=== PATIENT | male | born 1940 | race Caucasian/White ===

== ENCOUNTER → 2023-09-17 06:34 | Outpatient (REF) | payer MEDICARE, BC, SELFPAY ==
[2023-09-17 07:23] LABS: % Basophils 0.7 % (0-2); % Eosinophils 5.1 % (0-6); % Immature Granulocytes 0.7 % (0-0.5); % Lymphocytes 13.6 % (20.5-51.1); % Neutrophils 70.9 % (42.2-75.2); Absolute Eosinophils 0.3 10^3/uL (0-0.7); Absolute Lymphocytes 0.8 10^3/uL (1.2-3.4); Absolute Monocytes 0.5 10^3/uL (0.1-0.6); Hematocrit 42.9 % (39.0-52.0); Hemoglobin 14.6 g/dL (13.0-18.0); Mean Corpuscular Hgb 32.7 pg (27.0-31.0); Mean Corpuscular Volume 96.2 fL (80.0-94.0); Mean Platelet Volume 10.7 fL (7.4-10.4); Nucleated Red Blood Cells % 0 % (-); Platelet Count 154 10^3/uL (130-400); Red Blood Cell Count 4.46 10^6/uL (4.70-6.10); Red Cell Dist. Width 12.8 % (11.5-14.5); White Blood Cell Count 5.7 10^3/uL (4.8-10.8)
[2023-09-17 07:39] LABS: ALT (SGPT) 23 U/L (0-50); AST (SGOT) 30 U/L (17-59); Alkaline Phosphatase 50 U/L (38-126); Blood Urea Nitrogen 27 mg/dl (9-20); Calcium 9.4 mg/dl (8.4-10.2); Carbon Dioxide 29 mmol/L (22-30); Chloride 103 mmol/L (98-107); Glucose 97 mg/dl (70-99); HDL Cholesterol 57 mg/dl; LDL Cholesterol, Calculated 53 mg/dl; Potassium 4.3 mmol/L (3.5-5.1); Sodium 139 mmol/L (135-145); Total Bilirubin 1.2 mg/dl (0.2-1.3); Total Cholesterol 128 mg/dl (50-199); Total Protein 6.3 g/dl (6.3-8.2); Triglyceride 93 mg/dl (10-149); Very Low Density Lipoprotein 18 mg/dl (0-30); eGFR > 60.00
[2023-09-17 07:56] LABS: Free T4 1.11 ng/dl (0.78-2.19)
== END ==
LOC: REG 06:34
PROVIDERS: ATTENDING PHYSICIAN Internal Medicine Cardiovascular Disease; FAMILY PHYSICIAN Family Medicine
DX: E78.2 Mixed hyperlipidemia (principal); E03.9 Hypothyroidism, unspecified; R53.83 Other fatigue
CPT/HCPCS: 36415; 80053; 80061; 84403; 84439; 84443; 85025

== ENCOUNTER → 2023-12-29 07:21 | Outpatient (REF) | payer MEDICARE, BC, SELFPAY ==
[2023-12-29 08:46] LABS: Free T4 1.13 ng/dl (0.78-2.19)
[2023-12-29 09:00] LABS: TSH 6.57 uIU/ml (0.47-4.68)
== END ==
LOC: REG 07:21
PROVIDERS: ATTENDING PHYSICIAN Family Medicine
DX: E03.9 Hypothyroidism, unspecified (principal)
CPT/HCPCS: 36415; 84439; 84443

== ENCOUNTER → 2024-04-17 08:52 | Outpatient (REF) | payer MEDICARE, BC, SELFPAY | LOC: HWRCS 08:52 | PROVIDERS: ATTENDING PHYSICIAN Internal Medicine Cardiovascular Disease; FAMILY PHYSICIAN Family Medicine | DX: R53.83 Other fatigue (principal); I10 Essential (primary) hypertension | CPT/HCPCS: 93306 ==

== ENCOUNTER 2024-10-19 22:04 | Emergency (ER) | payer MEDICARE, BC, SELFPAY ==
[2024-10-19 22:07] VITALS: BP 131/73
[2024-10-19 22:46] LABS: COVID-19 Antigen Positive (Negative)
[2024-10-19 23:00] LABS: ALT (SGPT) 22 U/L (0-50); AST (SGOT) 29 U/L (17-59); Albumin 4.3 g/dl (3.5-5.0); Alkaline Phosphatase 64 U/L (38-126); Blood Urea Nitrogen 24 mg/dl (9-20); Calcium 9.8 mg/dl (8.4-10.2); Carbon Dioxide 28 mmol/L (22-30); Chloride 102 mmol/L (98-107); Glucose 110 mg/dl (70-99); Potassium 4.7 mmol/L (3.5-5.1); Sodium 139 mmol/L (135-145); Total Bilirubin 0.8 mg/dl (0.2-1.3); Total Protein 6.7 g/dl (6.3-8.2); eGFR > 60.00
[2024-10-20 01:07] VITALS: BP 134/83
--- NOTE | 2024-10-20 01:07 | ED.GENMED ---
History of Present Illness
General
Chief Complaint: Nasal Problem
Source: patient and spouse
Time Seen by Provider: 10/20/24 00:35
History of Present Illness
History of Present Illness:
This patient is an 84-year-old male who says that he has not been feeling well for the last 2 to 3 weeks. He describes chest congestion and feeling like his sinuses are 'clogged up' associated with occasional cough. He has seen his doctor and had
a chest x-ray that was unremarkable. He was put on a course of antibiotics, and then this was changed to another different course of antibiotics for 10 days. Patient feels that he got better but not fully improved. He presented the emergency
department today because he noted congestion specifically on the right side. He denies chest pain, fever, chills, nausea, vomiting, anorexia, dizziness, swelling. Despite triage note, he denies shortness of breath. He denies orthopnea, PND, lower
extremity edema.
Past History
Past History
ED Past Medical History: CAD, HTN, Hypercholesterolemia, Hypothyroidism and Other
ED Past Surgical History: Cardiac (Stent X2) and Other (Hernia, recent cardiac stent placement, exploratory laparotomy, laminectomy surgery)
Social History
Tobacco: Non-smoker
Alcohol: None
Drug: None
Personal:
Living: with family
Employment: Retired
Family History
Family History: Diabetes and Other
Phy Exam
Physical Exam
Physical Exam:
GENERAL: Alert , in no apparent distress
EYE: pupils equal and reactive, EOMI, no photophobia
NECK: Supple, no significant adenopathy.
ENT: o/p clr, mmm, TMs clear bilaterally, no trismus, no drool, voice clear, no percussion tenderness of sinuses.
CARDIAC: Regular rate and rhythm .
LUNGS: Clear breath sounds bilaterally, no acute respiratory distress, no wheezes/rales/rhonchi
ABDOMEN: Soft, without focal tenderness, no r/g, no cvat
NEUROLOGICAL: Alert and oriented, no focal neuro deficits
SKIN: Warm and dry, skin intact.
MUSCULOSKELETAL: No edema, well perfused.
PSYCH: Normal and appropriate interaction.
Course
Orders/Labs/Results
Orders:
Orders
10/19/24 22:24
COVID-19 Antigen Urgent
Source: Nasal Swab
Comprehensive Metabolic Panel Urgent
Influenza A+B Rapid Molecular Urgent
ODIN Source: Nasal Swab
Specimen Description:
10/19/24 22:38
Complete Blood Count/With Diff Urgent
Abnormal Lab Results
10/19/24 10/20/24
22:24 01:26
RBC 4.46 L 10^6/uL
(4.70-6.10)
MCV 95.5 H fL
(80.0-94.0)
MCH 32.3 H pg
(27.0-31.0)
Absolute Lymphs (auto) 0.7 L 10^3/uL
(1.2-3.4)
Absolute Monos (auto) 0.9 H 10^3/uL
(0.1-0.6)
Neutrophils % 76.0 H %
(42.2-75.2)
Lymphocytes % 9.4 L %
(20.5-51.1)
Monocytes % 10.8 H %
(1.7-9.3)
BUN 24 H mg/dl
(9-20)
Glucose 110 H mg/dl
(70-99)
SARS-CoV-2 Antigen Positive A
(Negative)
10/20/24 01:26
10/19/24 22:24
Vital Signs
Initial and Last Documented VS:
Initial Vital Signs
Temp Pulse Resp BP Pulse Ox
98.8 F 77 18 131/73 98
10/19/24 22:07 10/19/24 22:07 10/19/24 22:07 10/19/24 22:07 10/19/24 22:07
Last Documented Vital Signs
Temp Pulse Resp BP Pulse Ox
98.8 F 74 20 134/83 100
10/19/24 22:07 10/20/24 02:10 10/20/24 02:10 10/20/24 02:10 10/20/24 02:10
*Critical Care Note
Total Time (30-74mins, 75-104mins- exclusive of procedures): Not Applicable
Update Note
Update Note:
Patient presents to the Emergency Department with
Number and Complexity of Problems Addressed at the Encounter
� Chronic conditions affecting care:
� Acute Exacerbation and/or Progression of Chronic Illness:
� Differential Diagnosis includes:
Amount and/or Complexity of Data to be Reviewed and Analyzed
� I performed an independent evaluation of and my interpretation is:
EKG:
CT:
Xrays:
Laboratory Studies: Generally unremarkable, COVID-positive, mild BUN elevation which may suggest mild prerenal azotemia
Other:
� Review of other/old records reveals:
� Clinical information was obtained by an independent historian:
� Prescriptions/Medications Considered but not given:
� Further testing considered but not performed: Consider chest x-ray with symptoms however physical exam, pulse ox, etc. does not make me suspicious for acute pneumonia
Risk of Complications and/or Morbidity or Mortality of Patient Management
� Social determinants of health affecting care:
� Discussion with other providers (PCP, Hospitalists, Consultants, etc):
� Escalation of care including admission/observation vs risk of discharge considered: Long discussion with patient and his who is next to him. I do not believe that another course of antibiotics is indicated given he has
been on 2 rounds of antibiotics without change in symptoms. He was never tested for COVID since his symptoms began several weeks ago. It is unclear when he first became infected with COVID, but it is plausible that his symptoms began well before 5
days ago. Consideration for Paxlovid discussed with them both, they elect to defer starting this medication. Will continue with symptomatic care, and close follow-up.
ED Attending Note
-
Portions of this chart may have been created with voice recognition software.� Occasional wrong word or��sound alike� substitutions may have occurred due to the inherent limitations of voice recognition software.
Discharge Plan
Departure
Patient Disposition: Home (Routine Discharge)
Date of Disposition: 10/20/24
Time of Disposition: 01:52
Patient with high blood pressure during this ER visit?: Yes
Discharge Problem:
COVID
Instructions: COVID-19 in adults - Discharge instructions, BLOOD PRESSURE
Prescriptions:
New
fluticasone propionate [Flonase Allergy Relief] 50 mcg/actuation spray,suspension
1 spray intranasal DAILY Qty: 16 0RF
No Action
atorvastatin 40 MG tablet
40 mg PO HS
metoprolol succinate 50 MG tablet extended release 24 hr
50 mg PO DAILY@1200
aspirin 81 MG tablet,delayed release (DR/EC)
81 mg PO DAILY 0RF
tamsulosin 0.4 MG capsule
0.4 mg PO DAILY
losartan 25 MG tablet
25 mg PO DAILY
acetaminophen [Tylenol Extra Strength] 500 MG tablet
1,000 mg PO TIDPRN PRN (Reason: mild pain)
levothyroxine 150 MCG tablet
150 mcg PO DAILY
multivitamin with folic acid [Tab-A-Carissa] 1 TABLET tablet
1 tab PO DAILY
pantoprazole 40 MG tablet,delayed release (DR/EC)
40 mg PO DAILY@1200
coenzyme [id number] E [Co Q-10 (with Vit E)] 1 EACH capsule
2 ea PO DAILY
prednisone 10 MG tablet
20 mg PO DAILY
Patient Comments:
Taper: 40mg daily for 1 week, 30mg daily for 1 week, 20mg daily for 1 week, 10mg daily for 1 week,
polyvinyl alcohol-povidon(PF) [Refresh Classic (PF)] 10 DROPS dropperette
1 drops BOTH EYES HSPRN PRN (Reason: dry eyes)
Referrals:
Yomi Mack MD [Family Provider] - Follow up in 2-3 days
Activity Restrictions/Additional Instructions:
IF YOU DEVELOP SHORTNESS OF BREATH, CHEST PAIN, DIZZINESS, SEVERE HEADACHE, VOMITING, GET WORSE, DO NOT GET BETTER, OR OTHER WORRISOME SIGNS, PLEASE RETURN TO THE ER IMMEDIATELY!
Interventions
Interventions:
*Risk Screen - Suicide Last Done: 10/19/24 22:11
*General Assessment Last Done: 10/20/24 02:08
*Neglect/Abuse Screening Last Done: 10/19/24 22:11
*ED- Fall Risk Assessment Last Done: 10/20/24 02:00
*ED COVID-19 Vaccine History Last Done: 10/19/24 22:13
*Nursing Disposition Last Done: 10/20/24 02:10
ED- Cardiac Assessment Last Done: 10/20/24 01:03
ED-EENT Assessment Last Done: 10/20/24 01:06
ED- Pulmonary Assessment Last Done: 10/20/24 01:05
Discharge Date and Time
Discharge Date/Time: 10/20/24 02:12
Print Language: KHMER
[2024-10-20 01:37] LABS: % Basophils 0.3 % (0-2); % Eosinophils 3.2 % (0-6); % Immature Granulocytes 0.3 % (0-0.5); % Lymphocytes 9.4 % (20.5-51.1); % Monocytes 10.8 % (1.7-9.3); Absolute Eosinophils 0.3 10^3/uL (0-0.7); Absolute Lymphocytes 0.7 10^3/uL (1.2-3.4); Absolute Monocytes 0.9 10^3/uL (0.1-0.6); Hematocrit 42.6 % (39.0-52.0); Hemoglobin 14.4 g/dL (13.0-18.0); Mean Corp Hgb Conc. 33.8 g/dL (33.0-37.0); Mean Corpuscular Hgb 32.3 pg (27.0-31.0); Mean Corpuscular Volume 95.5 fL (80.0-94.0); Mean Platelet Volume 10.1 fL (7.4-10.4); Nucleated Red Blood Cells % 0 % (-); Platelet Count 149 10^3/uL (130-400); Red Blood Cell Count 4.46 10^6/uL (4.70-6.10); White Blood Cell Count 7.8 10^3/uL (4.8-10.8)
[2024-10-20 02:10] VITALS: BP 134/83
== END 2024-10-20 02:12 | disposition home or self-care (01) ==
LOC: EMR 22:04
PROVIDERS: Student in an Organized Health Care Education/Training Program; EMERGENCY PHYSICIAN Emergency Medicine; FAMILY PHYSICIAN Family Medicine
DX: U07.1 COVID-19 (principal); Z11.52 Encounter for screening for COVID-19; I10 Essential (primary) hypertension; I25.10 Atherosclerotic heart disease of native coronary artery without angina pectoris; E03.9 Hypothyroidism, unspecified; E78.00 Pure hypercholesterolemia, unspecified; Z95.5 Presence of coronary angioplasty implant and graft; Z79.82 Long term (current) use of aspirin
CPT/HCPCS: 99283; 80053; 85025; 87502; 87811

== ENCOUNTER 2024-11-14 11:12 | Emergency (ER) | payer MEDICARE, BC, SELFPAY ==
[2024-11-14 11:13] VITALS: BP 135/71
[2024-11-14 11:29] VITALS: BP 90/57; BMI 25.0
[2024-11-14 11:40] LABS: APTT 26.8 Sec (23.4-35.0); INR 0.95
[2024-11-14 11:43] LABS: % Basophils 0.3 % (0-2); % Eosinophils 2.8 % (0-6); % Immature Granulocytes 0.5 % (0-0.5); % Lymphocytes 13.4 % (20.5-51.1); % Monocytes 9.6 % (1.7-9.3); % Neutrophils 73.4 % (42.2-75.2); Absolute Eosinophils 0.2 10^3/uL (0-0.7); Absolute Lymphocytes 0.9 10^3/uL (1.2-3.4); Absolute Monocytes 0.6 10^3/uL (0.1-0.6); Absolute Neutrophils 4.8 10^3/uL (1.4-6.5); Hematocrit 41.4 % (39.0-52.0); Hemoglobin 13.7 g/dL (13.0-18.0); Mean Corp Hgb Conc. 33.1 g/dL (33.0-37.0); Mean Corpuscular Hgb 32.1 pg (27.0-31.0); Mean Platelet Volume 10.7 fL (7.4-10.4); Nucleated Red Blood Cells % 0 % (-); Platelet Count 118 10^3/uL (130-400); Red Blood Cell Count 4.27 10^6/uL (4.70-6.10); Red Cell Dist. Width 13.5 % (11.5-14.5); White Blood Cell Count 6.5 10^3/uL (4.8-10.8)
[2024-11-14 11:49] LABS: ALT (SGPT) 26 U/L (0-50); AST (SGOT) 29 U/L (17-59); Albumin 3.8 g/dl (3.5-5.0); Alkaline Phosphatase 40 U/L (38-126); Blood Urea Nitrogen 21 mg/dl (9-20); Calcium 9.9 mg/dl (8.4-10.2); Carbon Dioxide 26 mmol/L (22-30); Chloride 109 mmol/L (98-107); Estimated Creatinine Clearance 53 ml/min; Glucose 109 mg/dl (70-99); Potassium 4.5 mmol/L (3.5-5.1); Sodium 138 mmol/L (135-145); Total Bilirubin 1.2 mg/dl (0.2-1.3); eGFR > 60.00
--- NOTE | 2024-11-14 11:53 | ED.GENMED ---
History of Present Illness
General
Chief Complaint: Chest Pain
Source: patient and spouse
Exam Limitations: none
Time Seen by Provider: 11/14/24 11:25
Nursing documentation reviewed up to this point in time: agreed with
History of Present Illness
History of Present Illness:
84 yr old male with past medical history of CAD with stents hyperlipidemia, hypertension patient of Dr. Hernandez presents to the ER for evaluation. Approx 10: 30 this am pt was in his basement and developed sharp left-sided chest discomfort. During
my history he tells me that when he was in the ambulance it went away on its own however it is documented that patient did receive 2 nitro which EMS reported that took his pain from 10 out of 10 to a 0 out of 10. Patient denies any radiation of
pain. He had no associated shortness of breath. He is asymptomatic now and arrives in no acute distress.
Past History
Past History
ED Past Medical History: CAD, HTN, Hypercholesterolemia, Hypothyroidism and Other
ED Past Surgical History: Cardiac (Stent X2) and Other (Hernia, recent cardiac stent placement, exploratory laparotomy, laminectomy surgery)
Social History
Tobacco: Non-smoker
Alcohol: None
Drug: None
Personal:
Living: with family
Employment: Retired
Family History
Family History: Diabetes and Other
Review of Systems
Review of Systems
Allergies reviewed?: Yes
All Other Systems: ROS reviewed and negative except as documented in HPI and ROS
Constitutional: Reports no symptoms
Respiratory: Reports no symptoms
Cardiac: Reports chest pain (Chest pain has since resolved)
ABD/GI: Reports no symptoms
: Reports no symptoms
Musculoskeletal: Reports no symptoms
Psychiatric: Reports no symptoms
Phy Exam
General Physical Exam
General Presentation: no apparent distress
General age: appears stated age
General Skin: warm and dry
General Habitus: elderly
General Mental: alert
General Hydration: appears well hydrated
Cardiovascular Exam
Cardiovascular Exam: regular rate/rhythm, no murmur and normal peripheral pulses
Pulmonary Exam
Pulmonary Exam: lungs clear and no respiratory distress
Neurological Exam
Neurological Exam: alert and oriented x3
Musculoskeletal Exam
Musculoskeletal Exam: full ROM
Skin Exam
Skin Exam: normal color and warm/dry
Psychiatric Exam
Psychiatric Exam: normal mood/affect
Scores
Heart Score for Chest Pain Patients
STEMI patient?: Not applicable
Course
Orders/Labs/Results
Orders:
Orders
11/14/24 11:14
EKG [Electrocardiogram (*1)] Urgent
Reason for Study: Chest Pain
CXR2 [CR Chest - 2 Views ] Urgent
Comment:
Reason For Exam: shortness of breath
11/14/24 11:15
EKG- Treatment ONCE
11/14/24 11:19
Complete Blood Count/With Diff Urgent
Comprehensive Metabolic Panel Urgent
PTT Urgent
Prothrombin Time Urgent
Troponin I Urgent
11/14/24 13:37
EKG- Treatment ONCE
11/14/24 14:00
Electrocardiogram (*1) Stat
Reason for Study: Other
Other Reason for Exam: chest pain
11/14/24 14:07
Troponin I Urgent
Abnormal Lab Results
11/14/24
11:19
RBC 4.27 L 10^6/uL
(4.70-6.10)
MCV 97.0 H fL
(80.0-94.0)
MCH 32.1 H pg
(27.0-31.0)
Plt Count 118 L 10^3/uL
(130-400)
MPV 10.7 H fL
(7.4-10.4)
Absolute Lymphs (auto) 0.9 L 10^3/uL
(1.2-3.4)
Lymphocytes % 13.4 L %
(20.5-51.1)
Monocytes % 9.6 H %
(1.7-9.3)
Chloride 109 H mmol/L
(98-107)
BUN 21 H mg/dl
(9-20)
Glucose 109 H mg/dl
(70-99)
Total Protein 6.0 L g/dl
(6.3-8.2)
11/14/24 11:19
11/14/24 11:19
Vital Signs
Initial and Last Documented VS:
Initial Vital Signs
Pulse Resp BP
78 33 135/71
11/14/24 11:13 11/14/24 11:13 11/14/24 11:13
Last Documented Vital Signs
Temp Pulse Resp BP Pulse Ox
97.6 F 59 15 103/60 99
11/14/24 15:24 11/14/24 15:24 11/14/24 15:24 11/14/24 15:24 11/14/24 15:24
MDM/Problems Addressed
Differential Diagnosis Includes:
Not limited to ACS
MDM/Problems Addressed:
Patient is a 84-year-old male with history of stents followed by Yulisa presenting to the ER for evaluation. Patient reports he had a brief short episode of chest pain while in his basement and then walk up the steps and his called EMS.
EMS apparently gave him nitroglycerin but he does tell me that the pain resolved prior to being in the ambulance. Patient however presented asymptomatic here in the ER and has been asymptomatic since he has had 2 negative car troponins and no acute
findings on EKG. he has no complaints of shortness of breath is nontachycardic nonhypoxic .
he is well-appearing his chest x-ray is negative. He is stable for discharge home with cardiac hotline
*Radiology
Radiology exam reviewed: radiology read reviewed
*Pulse Oximetry
Patient hypoxic: no
*EKG
Interpreted by ED Provider?: Yes
Interpretation: abnormal
Heart Rate: 68
Rate: normal
Rhythm: sinus
Ischemia: non-specific ST changes
*Critical Care Note
Total Time (30-74mins, 75-104mins- exclusive of procedures): Not Applicable
ED Attending Note
-
Portions of this chart may have been created with voice recognition software.� Occasional wrong word or��sound alike� substitutions may have occurred due to the inherent limitations of voice recognition software.
Discharge Plan
Departure
Patient Disposition: Home (Routine Discharge)
Date of Disposition: 11/14/24
Time of Disposition: 15:21
Patient with high blood pressure during this ER visit?: No
Condition: Fair
Covid-19: Not Applicable
Discharge Problem:
Chest pain
Instructions: Chest Pain DCA Follow Up
Prescriptions:
No Action
atorvastatin 40 MG tablet
40 mg PO HS
metoprolol succinate 50 MG tablet extended release 24 hr
50 mg PO DAILY@1200
aspirin 81 MG tablet,delayed release (DR/EC)
81 mg PO DAILY 0RF
tamsulosin 0.4 MG capsule
0.4 mg PO DAILY
losartan 25 MG tablet
25 mg PO DAILY
acetaminophen [Tylenol Extra Strength] 500 MG tablet
1,000 mg PO TIDPRN PRN (Reason: mild pain)
levothyroxine 150 MCG tablet
150 mcg PO DAILY
multivitamin with folic acid [Tab-A-Carisas] 1 TABLET tablet
1 tab PO DAILY
coenzyme [id number] E [Co Q-10 (with Vit E)] 1 EACH capsule
2 ea PO DAILY
fluticasone propionate [Flonase Allergy Relief] 50 mcg/actuation spray,suspension
1 spray intranasal DAILY Qty: 16 0RF
galantamine 8 mg Tablet
8 mg PO HS
memantine 5 mg Tablet
5 mg PO QPM
Referrals:
Yomi Mack MD [Family Provider] -
Gulshan Hernandez MD [Active] -
Activity Restrictions/Additional Instructions:
As discussed your workup was negative here in the ER however you will be placed on the chest pain hotline. If you do not receive a call from the cardiology office in the next 1 to 2 days please give them a call to schedule an appointment soon as
possible. Return if any worsening of symptoms.
Interventions
Interventions:
*Risk Screen - Suicide Last Done: 11/14/24 11:29
*General Assessment Last Done: 11/14/24 11:29
*Neglect/Abuse Screening Last Done: 11/14/24 11:29
*ED- Fall Risk Assessment Last Done: 11/14/24 11:29
*ED COVID-19 Vaccine History Last Done: 11/14/24 11:29
*Nursing Disposition Last Done: 11/14/24 15:25
ED- Cardiac Assessment Last Done: 11/14/24 11:29
Discharge Date and Time
Discharge Date/Time: 11/14/24 15:29
Print Language: TURKMEN
[2024-11-14 11:56] LABS: Troponin I < 0.012 ng/ml
[2024-11-14 14:37] LABS: Troponin I < 0.012 ng/ml
[2024-11-14 15:24] VITALS: BP 103/60
== END 2024-11-14 15:29 | disposition home or self-care (01) ==
LOC: EMR 11:12
PROVIDERS: Nurse Practitioner; EMERGENCY PHYSICIAN Student in an Organized Health Care Education/Training Program; FAMILY PHYSICIAN Family Medicine
DX: R07.89 Other chest pain (principal); I25.10 Atherosclerotic heart disease of native coronary artery without angina pectoris; E78.00 Pure hypercholesterolemia, unspecified; E03.9 Hypothyroidism, unspecified; I10 Essential (primary) hypertension; Z83.3 Family history of diabetes mellitus; Z95.5 Presence of coronary angioplasty implant and graft
CPT/HCPCS: 99283; 71046; 80053; 84484; 85025; 85610; 85730; 93005

== ENCOUNTER → 2024-11-30 10:55 | Outpatient (REF) | payer MEDICARE, BC, SELFPAY | LOC: RCS 10:55 | PROVIDERS: ATTENDING PHYSICIAN Physician Assistant Medical; FAMILY PHYSICIAN Family Medicine | DX: R07.9 Chest pain, unspecified (principal); I25.10 Atherosclerotic heart disease of native coronary artery without angina pectoris | CPT/HCPCS: 78452; 93017; A9500; J2785 ==

== ENCOUNTER → 2025-01-09 07:28 | Outpatient (REF) | payer MEDICARE, BC, SELFPAY ==
[2025-01-09 08:26] LABS: Hematocrit 42.1 % (39.0-52.0); Hemoglobin 14.1 g/dL (13.0-18.0); Mean Corp Hgb Conc. 33.5 g/dL (33.0-37.0); Mean Corpuscular Volume 96.8 fL (80.0-94.0); Nucleated Red Blood Cells % 0 % (-); Platelet Count 154 10^3/uL (130-400); Red Cell Dist. Width 13.0 % (11.5-14.5)
[2025-01-09 08:58] LABS: AST (SGOT) 26 U/L (17-59); Blood Urea Nitrogen 28 mg/dl (9-20); Calcium 9.9 mg/dl (8.4-10.2); Carbon Dioxide 28 mmol/L (22-30); Chloride 109 mmol/L (98-107); Glucose 98 mg/dl (70-99); HDL Cholesterol 54 mg/dl; LDL Cholesterol, Calculated 47 mg/dl; Potassium 4.6 mmol/L (3.5-5.1); Sodium 141 mmol/L (135-145); Very Low Density Lipoprotein 14 mg/dl (0-30); eGFR > 60.00
[2025-01-09 09:07] LABS: ALT (SGPT) 23 U/L (0-50); Albumin 4.1 g/dl (3.5-5.0); Alkaline Phosphatase 52 U/L (38-126); Total Protein 6.3 g/dl (6.3-8.2)
[2025-01-09 09:12] LABS: Vitamin D, 25-OH*** 37.3 ng/mL (30-80)
== END ==
LOC: REG 07:28
PROVIDERS: ATTENDING PHYSICIAN Family Medicine; FAMILY PHYSICIAN Family Medicine
DX: E78.5 Hyperlipidemia, unspecified (principal); E55.9 Vitamin D deficiency, unspecified; R53.83 Other fatigue; D64.9 Anemia, unspecified
CPT/HCPCS: 36415; 80053; 80061; 82306; 84443; 85025

== ENCOUNTER 2025-06-12 12:34 | Emergency (ER) | payer MEDICARE, BC, SELFPAY ==
[2025-06-12 12:42] VITALS: BP 146/81
[2025-06-12 13:07] LABS: Hematocrit 42.3 % (39.0-52.0); Hemoglobin 14.2 g/dL (13.0-18.0); Mean Corp Hgb Conc. 33.6 g/dL (33.0-37.0); Mean Corpuscular Volume 94.4 fL (80.0-94.0); Nucleated Red Blood Cells % 0 % (-); Platelet Count 166 10^3/uL (130-400); Red Cell Dist. Width 12.8 % (11.5-14.5)
[2025-06-12 13:11] LABS: INR 1.09; PT 14.2 Sec (11.4-14.6)
[2025-06-12 13:20] LABS: ALT (SGPT) 18 U/L (0-50); AST (SGOT) 26 U/L (17-59); Albumin 4.2 g/dl (3.5-5.0); Alkaline Phosphatase 66 U/L (38-126); Blood Urea Nitrogen 25 mg/dl (9-20); Calcium 9.6 mg/dl (8.4-10.2); Carbon Dioxide 30 mmol/L (22-30); Chloride 102 mmol/L (98-107); Glucose 102 mg/dl (70-99); Potassium 4.3 mmol/L (3.5-5.1); Sodium 134 mmol/L (135-145); Total Protein 6.8 g/dl (6.3-8.2); eGFR > 60.00
[2025-06-12 13:31] LABS: Troponin I 0.020 ng/ml
[2025-06-12 13:55] VITALS: BMI 24.5
[2025-06-12 14:00] VITALS: BP 138/74
--- NOTE | 2025-06-12 14:39 | ED.GENMED ---
History of Present Illness
General
Chief Complaint: Chest Pain
Time Seen by Provider: 06/12/25 14:02
History of Present Illness
History of Present Illness:
84-year-old male presents to the emergency department for evaluation of pleuritic right-sided chest pain for the past 2 weeks. He has a history of hypertension, hyperlipidemia, artery disease but states this does not feel similar to his past
coronary syndromes. He notes that he had a [place] and approximately 4 months ago and was evaluated at [facility] in [place], however states he did not fall onto his chest and had no chest pain since that time. He denies
any shortness of breath or positional nature to the pain. No recent fevers or respiratory illnesses. He is not on any anticoagulants
Past History
Past History
ED Past Medical History: CAD, HTN, Hypercholesterolemia, Hypothyroidism and Other
ED Past Surgical History: Cardiac (Stent X2) and Other (Hernia, recent cardiac stent placement, exploratory laparotomy, laminectomy surgery)
Social History
Tobacco: Non-smoker
Alcohol: None
Drug: None
Personal:
Living: with family
Employment: Retired
Family History
Family History: Diabetes and Other
Review of Systems
Review of Systems
Allergies reviewed?: Yes
All Other Systems: ROS reviewed and negative except as documented in HPI and ROS
Phy Exam
Physical Exam
Physical Exam:
GEN: Well appearing, NAD, WDWN
HEENT: Oral mucosa moist, no scleral icterus
Cardiac: Regular rate and rhythm, no murmurs
Lung: No respiratory distress, no tachypnea, lungs clear to auscultation although diminished bases due to poor respiratory effort secondary to pain
Chest: No reproducible chest wall tenderness, no crepitus, ecchymosis, or palpable swelling
MSK: No gross deformity or injuries
Skin: Good color, no pallor or jaundice, no rashes
Neuro: Alert to baseline, moves all extremities freely, follows commands
Psych: Calm, cooperative
Scores
Heart Score for Chest Pain Patients
STEMI patient?: No
History: Slightly or Non-Suspicious
ECG: Normal
Age: >/= 65 years
Risk Factors: >/= 3 Risk Factors or History of CAD
Troponin: </= Normal Limit
Heart Score for Chest Pain Patients: 4
Heart Score Risk: 20.3% MACE over next 6 weeks
Course
Orders/Labs/Results
Orders:
Orders
06/12/25 12:35
Electrocardiogram (*1) Urgent
Reason for Study: Chest Pain
EKG- Treatment ONCE
06/12/25 12:52
Complete Blood Count/With Diff Urgent
Comprehensive Metabolic Panel Urgent
D-Dimer Urgent
Comment: ADD ON
Prothrombin Time Urgent
Troponin I Urgent
06/12/25 14:40
Add On- LAB Urgent
Tests Added?: D Dimer
CR Chest - 2 Views Urgent
Comment:
Reason For Exam: pleuritic chest pain
06/12/25 15:30
CT Chest PE Study Urgent
Comment:
Reason For Exam: pleuritic chest pain, elevated D dimer
06/12/25 15:42
Troponin I Urgent
Abnormal Lab Results
06/12/25
12:52
RBC 4.48 L 10^6/uL
(4.70-6.10)
MCV 94.4 H fL
(80.0-94.0)
MCH 31.7 H pg
(27.0-31.0)
Absolute Neuts (auto) 7.3 H 10^3/uL
(1.4-6.5)
Absolute Lymphs (auto) 0.8 L 10^3/uL
(1.2-3.4)
Absolute Monos (auto) 0.9 H 10^3/uL
(0.1-0.6)
Neutrophils % 80.0 H %
(42.2-75.2)
Lymphocytes % 8.6 L %
(20.5-51.1)
D-Dimer 1.28 H ug/mlFEU
(0.00-0.50)
Sodium 134 L mmol/L
(135-145)
BUN 25 H mg/dl
(9-20)
Glucose 102 H mg/dl
(70-99)
06/12/25 12:52
06/12/25 12:52
Vital Signs
Initial and Last Documented VS:
Initial Vital Signs
Temp Pulse Resp BP Pulse Ox
98.5 F 64 18 146/81 99
06/12/25 12:42 06/12/25 12:42 06/12/25 12:42 06/12/25 12:42 06/12/25 12:42
Last Documented Vital Signs
Temp Pulse Resp BP Pulse Ox
98.5 F 64 18 122/68 100
06/12/25 12:42 06/12/25 12:42 06/12/25 12:42 06/12/25 17:00 06/12/25 16:12
MDM/Problems Addressed
MDM/Problems Addressed:
Shoulder pain troponins are stable. D-dimer was obtained today but eventually pain and this did come back elevated prompting the need for PE study which was unremarkable. He does note coronary artery calcifications and thus the patient be referred
to his online editor for close workup, particularly given the lack of other clear diagnosis. 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
Comment
Comment:
EKG independently interpreted by me shows normal sinus rhythm at a rate of [address] changes concerning for ischemia
*Pulse Oximetry
SaO2: 99
Oxygen Mode of Delivery: Room air
Patient hypoxic: no
*Critical Care Note
Total Time (30-74mins, 75-104mins- exclusive of procedures): Not Applicable
ED Attending Note
-
Portions of this chart may have been created with voice recognition software.� Occasional wrong word or��sound alike� substitutions may have occurred due to the inherent limitations of voice recognition software.
Discharge Plan
Departure
Patient Disposition: Home (Routine Discharge)
Date of Disposition: 06/12/25
Time of Disposition: 17:56
Patient with high blood pressure during this ER visit?: No
Discharge Problem:
Chest pain
Instructions: Chest Pain DCA Follow Up
Prescriptions:
No Action
atorvastatin 40 MG tablet
40 mg PO HS
metoprolol succinate 50 MG tablet extended release 24 hr
50 mg PO DAILY@1200
aspirin 81 MG tablet,delayed release (DR/EC)
81 mg PO DAILY 0RF
tamsulosin 0.4 MG capsule
0.4 mg PO DAILY
losartan 25 MG tablet
25 mg PO DAILY
acetaminophen [Tylenol Extra Strength] 500 MG tablet
1,000 mg PO TIDPRN PRN (Reason: mild pain)
levothyroxine 150 MCG tablet
150 mcg PO DAILY
multivitamin with folic acid [Tab-A-Carissa] 1 TABLET tablet
1 tab PO DAILY
coenzyme [id number] E [Co Q-10 (with Vit E)] 1 EACH capsule
2 ea PO DAILY
fluticasone propionate [Flonase Allergy Relief] 50 mcg/actuation spray,suspension
1 spray intranasal DAILY Qty: 16 0RF
galantamine 8 mg Tablet
8 mg PO HS
memantine 5 mg Tablet
5 mg PO QPM
Referrals:
Opal Reagan DO [Family Provider, Family Practice]
Interventions
Interventions:
*Risk Screen - Suicide Last Done: 06/12/25 12:42
*General Assessment Last Done: 06/12/25 12:42
*Neglect/Abuse Screening Last Done: 06/12/25 12:42
*ED COVID-19 Vaccine History Last Done: 06/12/25 13:55
*ED Influenza Vaccine History Last Done: 06/12/25 13:[address]
[facility] Fall Risk Assessment Tool Last Done: 06/12/25 13:55
*Nursing Disposition Last Done: 06/12/25 18:11
ED- Cardiac Assessment Last Done: 06/12/25 13:55
Discharge Date and Time
Discharge Date/Time: 06/12/25 18:00
Print Language: UPPER SORBIAN
[2025-06-12 15:19] LABS: D-Dimer 1.28 ug/mlFEU (0.00-0.50)
[2025-06-12 15:41] VITALS: BP 131/68
[2025-06-12 16:00] VITALS: BP 121/63
[2025-06-12 16:14] LABS: Troponin I 0.019 ng/ml
[2025-06-12 17:00] VITALS: BP 122/68
== END 2025-06-12 18:00 | disposition home or self-care (01) ==
LOC: EMR 12:34
PROVIDERS: Emergency Medicine; Physician Assistant; EMERGENCY PHYSICIAN Emergency Medicine; FAMILY PHYSICIAN Family Medicine
DX: R07.89 Other chest pain (principal); E03.9 Hypothyroidism, unspecified; E78.00 Pure hypercholesterolemia, unspecified; I25.10 Atherosclerotic heart disease of native coronary artery without angina pectoris; I10 Essential (primary) hypertension; Z95.5 Presence of coronary angioplasty implant and graft
CPT/HCPCS: 99285; 71046; 71275; 80053; 84484; 85025; 85379; 85610; 93005; Q9967